=== PATIENT | female | born 1985 | race Caucasian/White ===

== ENCOUNTER 2024-10-22 10:22 | Outpatient (REF) | payer MEDICAID, SELFPAY ==
--- OUTSIDE RECORDS SUMMARY | 2024-10-22 12:16 | XMS_ITS | Encounter Summary ---
Author Organization [employer] Address [address] [facility] [address] [place] [address] Care Team Providers Care Sample Card Maker Name Role Phone Anette Brunson MD Primary Care Provider Encounter Details Date Type Department Care Team (Latest Contact Info) Description 10/22/2024 Travel Social History Tobacco Use Types Packs/Day Years Used Date Smoking Tobacco: Every Day Cigarettes Depression Answer Date Recorded Patient Health Questionnaire-9 Score 1 10/22/2024 Patient Health Questionnaire-9 Score 1 10/22/2024 Last PHQ-9: Questionnaire Data Not on file 0 10/22/2024 Housing Stability Answer Date Recorded What is your housing situation today? I have ciara love 10/08/[address] you li ve. Do you have problems with any of the following? None of the above 10/08/2024 Food Insecurity Answer Date Recorded Within the past 12 months, y ou worried that your food would run out before you got money to buy more: Sometimes True 2024 Within the past 12 months,th e food you bought just didn't last and you didn't have enough money to get more: Sometimes True 10/08/2024 Transportation Answer Date Recorded In the past 12 months, has l ack of transportation kept you from medical appts, meetings, work or from getting things needed for daily living? Yes, it has kept me from medical appointments or getting medications. 10/08/2024 Utilities Answer Date Recorded In the past 12 months, has t he electric, gas, oil or water company threatened to shut off services in your home? I am not sure 10/22/2024 Depression Answer Date Recorded Patient Health Questionnaire-2 Score 0 10/22/2024 Internet Access Answer Date Recorded Internet Access Q1 Yes 10/08/2024 Internet Access Q2 Not on file 10/08/2024 Comments Unknown Sex and Gender Information Value Date Recorded Sex Assigned at Female 11/22/2022 2:36 PM EDT Legal Sex Male 10:19 AM EDT Gender Identity Transgender Male 11/22/2022 2:36 PM EDT Sexual Orientation Choose not to disclose 2021 10:19 AM EDT documented as of this encounter Plan of Treatment Not on file documented as of this encounter Visit Diagnoses Not on filedocumented in this encounter Additional Health Concerns Assessment Noted Time PHQ-9 Depression Total Score: 1 10/22/19 25 10:16 AM EST documented as of this encounter Care Teams Sample Card Maker Relationship Specialty Start Date End Date Anette Brunson MD [address] [place] [address] PCP - General Family Medicine 08/07/12 documented as of this encounter
--- OUTSIDE RECORDS SUMMARY | 2024-10-22 12:16 | XMS_ITS | Encounter Summary ---
Author Organization [employer] Address [address] [place] [address] [address] [address] Care Team Providers Care Arborist Representative Name Role Phone Anette Brunson MD Primary Care Provider [phone] Encounter Details Date Type Department Care Team ([facility] st Contact Info) Description 01/14/2023 [facility] Information Management [address] [place], [place] [id number] Anette Brunson MD [address] [place], [place] [phone] Social History Tobacco Use Types Packs/Day Years Used Date Smoking Tobacco: Every Day Cigarettes Comments Unknown Sex and Gender Information Value [...] Diagnoses Not on filedocumented in this encounter Care Teams Arborist Representative Relationship Specialty Start Date End Date Anette Brunson MD [address] [place] [address] PCP - General Family Medicine 08/07/12 documented as of this encounter
--- OUTSIDE RECORDS SUMMARY | 2024-10-22 12:16 | XMS_ITS | Encounter Summary ---
Author Organization [employer] Address [address] [place] [address] [address] [place] [address] Care Team Providers Care Hand Binder Stripper Name Role Phone Anette Brunson MD Primary Care Provider [phone] Encounter Details Date Type Department Care Team (Late st Contact Info) Description 02/26/2024 Orders Only [facility] CHC MED & PEDS [address] [place], [place] [phone] MonteroOctavio Borges MD [address] [place] [address] Social History Tobacco Use Types Packs/Day Years [...] on filedocumented in this encounter Care Teams Hand Binder Stripper Relationship Specialty Start Date End Date Anette Brunson MD [address] [place] [address] PCP - General Family Medicine 08/07/12 documented as of this encounter
--- OUTSIDE RECORDS SUMMARY | 2024-10-22 12:16 | XMS_ITS | Clinical Summary ---
Author Organization [employer] Address [address] [place] [address] [address] [address] Care Team Providers Care Winding Department Supervisor Name Role Phone Anette Brunson MD Primary Care Provider [phone] Medications naproxen (Naprosyn) 500 MG tablet take 1 tablet by oral route 2 times every day as needed 04/04/2022 Active naproxen (Naprosyn) 500 MG tabletIndication s:Pain TAKE 1 TABLET BY MOUTH two (2) times a day NEEDED 60 tablet 4 06/19/2023 Active testosterone cypionate (Depo-Testostero ne) 200 MG/ML injection Inject 1 mL (200 mg) into the muscle every 14 (fourteen) days. 2 mL 3 09/09/2024 Active levothyroxine (Synthroid, Levoxyl) 200 MCG tabletIndication s:Hypothyroidism , unspecified Take 1 tablet (200 mcg) by mouth Once per day. 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 10/30/2022 Encounters Date Type Department Care Team Description 10/22/2024 10:15 AM EST Office Visit [facility] CHC MED & PEDS [address] [place] [address] Anette Brunson MD Acquired hypothyroidism (Primary Dx); Encounter for screening mammogram for breast cancer; Encounter for immunization; Screen for STD (sexually transmitted disease); Chronic bilateral low back pain without sciatica; 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; Encounter for annual wellness visit 10/22/2024 Travel 10/09/2024 Patient Outreach [facility] MEDICINE [address] [place] [address] Anette Brunson MD SDOH Concerns (C3CM/CHW MATTIE [place] transportation_LVM) 10/08/2024 Patient Outreach [facility] [address] [place] [address] Anette Brunson MD SDOH Concerns (C3CM/CHW MATTIE [place] SDOH) 10/08/2024 Patient Outreach [facility] [address] [place] [address] Anette Brunson MD Pre-visit Planning (SDOH screening positive and Tobacco screening positive) 09/09/2024 Refill [facility] CHC MED & PEDS [address] [place], [place] [phone] Anette Brunson MD Hypothyroidism, unspecified from Last 3 Months Immunizations Name Administration Dates Next Due Tdap 10/22/2024 Social History Tobacco Use Types Packs/Day Years Used Date Smoking Tobacco: Every Day Cigarettes Tobacco Cessation:Ready to Q uit: Not Asked; Counseling Given: Not Answered Depression Answer Date Recorded Patient Health Questionnaire-9 Score 1 10/22/2024 Patient Health Questionnaire-9 Score 1 10/22/2024 Last PHQ-9: Questionnaire Data Not on file 0 10/22/2024 Housing Stability Answer Date Recorded What is your housing situation today? I have ciarakory love 10/08/[address] you [...] not to disclose 2021 10:19 AM EDT Last Filed Vital Signs Vital Sign Reading Time Taken Comments Blood Pressure 140/70 10/22/2024 10:03 AM EST Pulse 82 10/22/2024 10:03 AM EST Temperature 36.6 ??C (97.8 ??F) 10/22/2024 10:[address] Respiratory Rate 20 10/22/2024 10:03 AM EST Oxygen Saturation 98% 10/22/2024 10:03 AM EST Inhaled Oxygen Concentration - - Weight 107 kg (235 lb 12.8 oz) 10/22/2024 10:03 AM EST Height 170.2 cm (5' 7 ) 10/22/2024 10:03 AM EST Body Mass Index 36.93 10/22/2024 10:03 AM EST Plan of Treatment Health Maintenance Due Date Last Done Comments HIV Screening 1983 Family Planning (PISQ) 1998 Hepatitis C Screening 2001 Hepatitis B Vaccines (1 of 3 - 19+ 3-dose series) 2002 Pneumococcal Vaccine: Pediatrics (0 to 5 Years) and At-Risk Patients (6 to 49) Years) (1 of 2 - PCV) 2002 Pap Smear 2004 HPV/Cotest 2013 Mammogram 2023 Influenza Vaccine (#1) 2025 10/05/2021 Postp oned from 04/26/2024 (Patient Refused) Tobacco Screening 10/08/2025 10/08/2024 Alcohol/Substance Use Screening 10/22/2025 10/22/2024 COVID-19 Vaccine (4 - 2023-2 5 season) 2025 08/02/2022, 03/14/2022, 02/07/2022 Postponed from 04/26/2024 (Patient Refused) Cervical Cancer Screening 10/22/2025 Po stponed from 2013 (Patient Refused) Depression Screening 10/22/2025 10/22/2024, 10/22/2024 SDOH Screening 10/22/2025 10/22/2024 Lipid Panel 10/31/2027 10/30/2022, 11/02/2021 Zoster Vaccines (1 of 2) 2033 DTaP/Tdap/Td Vaccines (3 - T d or Tdap) 10/22/2034 10/22/2024, 03/12/2014 RSV Patients and Patients Aged 60 years or older (1 - 1-dose 75+ series) 2058 HIB Vaccines Aged Out No longer eligi ble based on patient's age to complete this topic HPV Vaccines Aged Out No longer eligi ble based on patient's age to complete this topic Hepatitis A Vaccines Aged Out No long er eligible based on patient's age to complete this topic IPV Vaccines Aged Out No longer eligi ble based on patient's age to complete this topic Meningococcal Vaccine Aged Out No gabi chaparro eligible based on patient's age to complete this topic RSV under 20 months Aged Out No longe r eligible based on patient's age to complete this topic Rotavirus Vaccines Aged Out No longer eligible based on patient's age to complete this topic Procedures Procedure Name Priority Date/Time Associated Diagnosis Comments LIPID PANEL, STANDARD Routine 10/30/2022 11:05 AM EST Acquired hypothyroidism from Last 3 Months or Most Recently Relevant to Health Maintenance Results * (ABNORMAL) Lipid Panel, Standard (10/30/2022 11:05 AM EST) Cholesterol, Total 247(H) <200 mg/dL [employer] [place] [employer] HDL Cholesterol 70 > OR = 40 mg/dL [facility] [place] [facility] Triglycerides 146 <150 mg/dL [employer] [place] [facility] LDL Cholesterol 149(H) mg/dL (calc) [facility] [employer] [facility] [place] [facility] Comment: Reference range: <100 Desirable range <100 mg/dL for primary prevention; ?? <70 mg/dL for patients with CHD or diabetic patients with > or = 2 CHD risk factors. LDL-C is now calculated using the Mariel calculation, which is a validated novel method providing better accuracy than the Friedewald equation in the estimation of LDL-C. Nando SS et al. APOLLO. 2013;310(19): 1641-8794 (http://education.[employer]/faq/AHH792) Chol/HDLC Ratio 3.5 <5.0 (calc) [employer] Non-HDL Cholesterol 177(H) <130 mg/dL (calc) [employer] Comment: For patients with diabetes plus 1 major ASCVD risk factor, treating to a non-HDL-C goal of <100 mg/dL (LDL-C of <70 mg/dL) is considered a therapeutic option. Blood Venous blood specimen / Unknown 10/30/2022 11:05 AM EST 10/30/2022 11:06 AM EST Narrative [facility] - 11/04/2022 4:33 PM EDT FASTING:NO FASTING: NO us Anette Brunson MD LAB BLOOD ORDERABLES Final Resul t [facility] [address], [place] [address] [employer] [place] [employer] [address] [facility], ([address]) [place] [address] from Last 3 Months or Most Recently Relevant to Health Maintenance Insurance [facility] C3 Care Teams Winding Department Supervisor Relationship Specialty Start Date End Date Anette Brunson MD [address] [place] [address] PCP - General Family Medicine 08/07/12
--- OUTSIDE RECORDS SUMMARY | 2024-10-22 12:16 | XMS_ITS | Encounter Summary ---
Author Organization [employer] Address [address] [place] [address] [address] [address] Care Team Providers Care Lab Asst Name Role Phone Anette Brunson MD Primary Care Provider [phone] Reason for Referral * Consultation (Routine) - Closed Specialty Diagnoses / Procedures Referred By Bhupinder broussard Referred To Contact Physical Therapy Diagnoses Chronic bilateral low back pain without sciatica Anette Brunson MD [address] [place] [address] Phone: tel: fax: Physical Therapy, AT [address] [place], [place] Phone: tel: fax: Referral ID Status Reason Start Date Expiration Date V isits Requested Visits Authorized [id number] Closed Specialty Services Required 10/22/2024 10/22/2025 1 1 * Consultation (Routine) - Pending Review Specialty Diagnoses / Procedures Referred By Bhupinder broussard Referred To Contact Orthopaedic Surgery Diagnoses Chronic bilateral low back pain without sciatica Anette Brunson MD [address] [place] [address] Phone: tel: fax: Referral ID Status Reason Start Date Expiration Date Visits Requested Visits Authorized [id number] Pending Review Specialty Services Required 10/22/2024 10/22/2025 1 1 Reason for Visit * Reason Comments Annual Exam Encounter Details Date Type Department Care Team (Latest Contact Info) Description 10/22/2024 10:15 AM EST Office Visit [facility] MED & PEDS [address] [place] [address] Anette Brunson MD [address] [place] [address] Acquired hypothyroidism (Primary Dx); Encounter for screening mammogram for breast cancer; Encounter for immunization; Screen for STD (sexually transmitted disease); Chronic bilateral low back pain without sciatica; 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 adult who presents for Annual Exam. Back Pain This is a chronic problem. The current episode started more than 1 year ago. The problem occurs constantly. The problem has been gradually worsening since onset. The pain is present in the lumbar spine. The quality of the pain is described as aching. The pain does not radiate. The pain is at a severity of 7/10. The pain is moderate. The pain is The same all the time. Stiffness is present All day. Pertinent negatives include no abdominal pain, bladder incontinence, bowel incontinence, chest pain, headaches, numbness, paresis, paresthesias, perianal numbness, tingling, weakness or weight loss. Risk factors include obesity and lack of exercise. He has tried analgesics for the symptoms. The treatment provided mild relief. Review of Systems Constitutional: Negative. Negative for weight loss. Respiratory: Negative. Negative for shortness of breath. Cardiovascular: Negative for chest pain and palpitations. Gastrointestinal: Negative. Negative for abdominal pain and bowel incontinence. Genitourinary: Negative. Negative for bladder incontinence. Musculoskeletal: Positive for back pain. Negative for neck pain. Neurological: Negative for tingling, weakness, numbness, headaches and paresthesias. Objective Physical Exam Constitutional: Appearance: Normal appearance. HENT: Head: Normocephalic and atraumatic. Right Ear: Tympanic membrane normal. Left Ear: Tympanic membrane normal. Mouth/Throat: Mouth: Mucous membranes are moist. Eyes: Pupils: Pupils are equal, round, and reactive to light. Cardiovascular: Rate and Rhythm: Normal rate and regular rhythm. Pulmonary: Effort: Pulmonary effort is normal. Breath sounds: Normal breath sounds. Abdominal: General: Abdomen is flat. Palpations: Abdomen is soft. Genitourinary: Comments: Pt refused Musculoskeletal: General: Normal range of motion. Cervical back: Normal range of motion. Lumbar back: No spasms or tenderness. Skin: General: Skin is warm. Neurological: General: No focal deficit present. Mental Status: He is alert. Psychiatric: Mood and Affect: Mood normal. Behavior: Behavior normal. Assessment/Plan Diagnoses and all orders for this visit: Acquired hypothyroidism Comments: Labs ordered Cont Levothyroxine Orders: - Basic Metabolic Panel; Future - Lipid Panel, Standard; Future - Hepatic Function Panel; Future - TSH with Reflex to Free T4; Future Encounter for screening mammogram for breast cancer Encounter for immunization - TDAP VACCINE 7 yrs + Screen for STD (sexually transmitted disease) - Hepatitis C Antibody with Reflex to HCV, RNA, Quantitative, Real-Time PCR; Future - HIV-1/2 Antigen and Antibodies, Fourth Generation, with Reflexes; Future Chronic bilateral low back pain without sciatica Comments: Referred to Ortho Orders: - Referral to Orthopaedic Surgery; Future - Referral to Physical Therapy; Future 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 Maintain a regular cardiovascular exercise program. Advised to maintain a low-fat, low-cholesterol diet. Counseled regarding importance of weight loss. Counseled re: potential co-morbidities including cardiovascular disease. documented in this encounter Plan of Treatment Scheduled Orders Name Type Priority Associated Diagnoses Orde r Schedule Basic Metabolic Panel Lab Routine Acquired hypothyroidism Expected: 10/22/2024 (Approximate), Expires: 10/22/2025 Lipid Panel, Standard Lab Routine Acquired hypothyroidism Expected: 10/22/2024 (Approximate), Expires: 10/22/2025 Hepatic Function Panel Lab Routine Acquired hypothyroidism Expected: 10/22/2024 (Approximate), Expires: 10/22/2025 Hepatitis C Antibody with Reflex to HCV, RNA, Quantitative, Real-Time PCR Lab Routine Screen for STD (sexually transmitted disease) Expected: 10/22/2024, Expires: 10/22/2025 HIV-1/2 Antigen and Antibodies, Fourth Generation, with Reflexes Lab Routine Screen for STD (sexually transmitted disease) Expected: 10/22/2024 (Approximate), Expires: 10/22/2025 TSH with Reflex to Free T4 Lab Routine Acquired hypothyroidism Expected: 10/22/2024 (Approximate), Expires: 10/22/2025 Testosterone, Total, males (Adult), IA Lab Routine 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 Expected: 10/22/2024, Expires: 10/22/2025 Scheduled Referrals Name Type Priority Associated Diagnoses Order Schedule Referral to Orthopaedic Surgery Outpatient Referral Routine Chronic bilateral low back pain without sciatica Expected: 10/22/2024 (Approximate), Expires: 10/22/2025 Referral to Physical Therapy Outpatient Referral Routine Chronic bilateral low back pain without sciatica Expected: 10/22/2024 (Approximate), Expires: 10/22/2025 documented as of this encounter Visit Diagnoses Diagnosis Acquired hypothyroidism- Primary Unspecified hypothyroidism Encounter for screening mammogram for breast cancer Encounter for immunization Screen for STD (sexually transmitted disease) Screening examination for venereal disease Chronic bilateral low back pain without sciatica 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
--- OUTSIDE RECORDS SUMMARY | 2024-10-22 12:16 | XMS_ITS | Encounter Summary ---
Author Organization [email or web address] Address [address] [facility] [address] [place] [address] Care Team Providers Care Tobacco Cutter Name Role Phone Anette Brunson MD Primary Care Provider [phone] Reason for Visit * Reason Comments SDOH Concerns C3CM/MATTIE Pereyra transportation_LVM Encounter Details Date Type Department Care Team ([facility] st Contact Info) Description 10/09/2024 Patient Outreach [facility] MEDICINE [address] [place] [address] Anette Brunson MD [address] [place] [address] SDOH Concerns (MTATIE Cao transportation_LVM) Social History Tobacco Use Types Packs/Day Years Used Date Smoking Tobacco: Every Day Cigarettes Housing Stability Answer Date Recorded What is [...] the past 12 months, has t he [employer], [employer], oil or water company threatened to shut off services in your home? No 10/08/2024 Internet Access Answer Date Recorded Internet Access Q1 Yes 10/08/2024 Internet Access Q2 Not on file 10/08/2024 Comments Unknown Sex and Gender Information Value Date Recorded Sex Assigned at Female 11/22/2022 2:36 PM EDT Legal Sex Male 10:19 AM EDT Gender Identity Transgender Male 11/22/2022 2:36 PM EDT Sexual Orientation Choose not to disclose 2021 10:19 AM EDT documented as of this encounter Progress Notes * Rajiv Martinez - 10/09/2024 1:46 PM EST CHW Rajiv Martinez, scheduled transportation via online for upcoming appt at [facility] on 10/22/24 at 10:00 AM. CHW called patient & no answer. CHW LVM informing patient of transportation details. documented in this encounter Plan of Treatment Not on file documented as of this encounter Visit Diagnoses Not on filedocumented in this encounter Care Teams Tobacco Cutter Relationship Specialty Start Date End Date Anette Brunson MD [address] [place] [address] PCP - General Family Medicine 08/07/12 documented as of this encounter
--- OUTSIDE RECORDS SUMMARY | 2024-10-22 12:16 | XMS_ITS | Encounter Summary ---
Author Organization [employer] Address [address] [place] [address] [address] [address] Care Team Providers Care Trim Mounter Name Role Phone Anette Brunson MD Primary Care Provider [phone] Reason for Visit * Reason Comments Med Refill Encounter Details Date Type Department Care Team ([facility] st Contact Info) Description 11/18/2023 Refill [facility] MEDICINE [address] [place] [address] Anette Brunson MD [address] [place] [address] Pain Social History Tobacco Use Types Packs/Day Years [...] as of this encounter Visit Diagnoses Diagnosis Pain Generalized pain documented in this encounter Care Teams Trim Mounter Relationship Specialty Start Date End Date Anette Brunson MD [address] [place] [address] PCP - General Family Medicine 08/07/12 documented as of this encounter
--- OUTSIDE RECORDS SUMMARY | 2024-10-22 12:17 | XMS_ITS | Encounter Summary ---
Author Organization [employer] Address [address] [facility] 7[address] [place] [address] Care Team Providers Care Logistics Specialist Name Role Phone Anette Brunson MD Primary Care Provider [phone] Reason for Visit * Reason Comments SDOH Concerns [id number] Pereyra SDOH Encounter Details Date Type Department Care Team ([facility] st Contact Info) Description 10/08/2024 Patient Outreach [facility] MEDICINE [address] [place] [address] Anette Brunson MD [address] [place] [address] SDOH Concerns (SALLY/MATTIE Godinez SDOH) Social History Tobacco Use Types Packs/Day Years [...] encounter Progress Notes * Rajiv Martinez - 10/08/2024 11:07 AM EST CHW Rajiv Martinez, placed outbound call to patient introducing herself from [facility] CM Department, in regards to SDOH needs for food insecurity & transportation. Patient's name andDOB was confirmed. CHW submitted PT1 request for [facility], [facility] today. CHW will contact patient on Saturdayto request transportation for upcoming appt at [facility]. Patient has food insecurities sometimes. CHW mailed a food pantry list to patient. No other SDOH needs at this time. CHW reinforced direct contact information for any additional questions or concerns and extended clinic hours on Mondays and Wednesdays, and Walk-In Urgent Care Located in [facility] of [facility]. Patient provided with after-hours line for [facility], , which offer night time triage service and option to transfer to systems integration analyst provider if needed. Patient verbalizes understanding, and able to repeat back to physician underwriter. A follow up call will be placed within 10 days, patient agrees with plan. documented in this encounter Plan of Treatment Not on file documented as of this encounter Visit Diagnoses Not on filedocumented in this encounter Care Teams Logistics Specialist Relationship Specialty Start Date End Date Anette Brunson MD [address] [place] [id number] PCP - General Family Medicine 08/07/12 documented as of this encounter
--- OUTSIDE RECORDS SUMMARY | 2024-10-22 12:17 | XMS_ITS | Encounter Summary ---
Author Organization [employer] Address [address] [place] [address] [address] [place] [address] Care Team Providers Care Superintendent Operating Name Role Phone Anette Brunson MD Primary Care Provider [phone] Encounter Details Date Type Department Care Team (Late st Contact Info) Description 10/31/2022 Orders Only [facility] CHC MED & PEDS [address] [place], [place] [id number] Anette Brunson MD [address] [place], [place] [phone] Social History Tobacco Use Types Packs/Day Years Used Date Smoking Tobacco: Every Day Cigarettes Comments Unknown Sex and Gender Information Value Date Recorded Sex Assigned at Female 11/22/2022 2:36 PM EDT Legal Sex Male 10:19 AM EDT Gender Identity Transgender Male 11/22/2022 2:36 PM EDT Sexual Orientation Choose not to disclose 2021 10:19 AM EDT COVID-19 Exposure Response Date Recorded In the last 10 days, have yo u been in contact with someone who was confirmed or suspected to have Coronavirus/COVID-19? No / Unsure 10/30/2022 10:30 AM EST documented as of this encounter Plan of Treatment Not on file documented as of this encounter Visit Diagnoses Not on filedocumented in this encounter Care Teams Superintendent Operating Relationship Specialty Start Date End Date Anette Brunson MD [address] [place] [address] PCP - General Family Medicine 08/07/12 documented as of this encounter
--- OUTSIDE RECORDS SUMMARY | 2024-10-22 12:17 | XMS_ITS | Encounter Summary ---
Author Organization [employer] Address [address] [place] [address] [address] [address] Care Team Providers Care Marina Sales And Service Supervisor Name Role Phone Anette Brunson MD Primary Care Provider [phone] Reason for Visit * Reason Onset Date Comments triage 01/07/2023 Encounter Details Date Type Department Care Team (Late st Contact Info) Description 01/07/2023 Telephone [facility] CHC MED & PEDS [address] [place], [place] [phone] Anette Brunson MD [address] [place] [address] triage Social History Tobacco Use Types Packs/Day Years Used Date Smoking Tobacco: Every Day Cigarettes Comments Unknown Sex and Gender Information Value Date Recorded Sex Assigned at Female 11/22/2022 2:36 PM EDT Legal Sex Male 10:19 AM EDT Gender Identity Transgender Male 11/22/2022 2:36 PM EDT Sexual Orientation Choose not to disclose 2021 10:19 AM EDT documented as of this encounter Miscellaneous Notes * Telephone Encounter - Anette Brunson MD - 01/08/2023 10:14 PM EDT PA needs to be done * Telephone Encounter - Samira Sims LPN - 01/07/2023 3:25 PM EDT Please review and advise regarding message below. * Telephone Encounter - Leda Seals - 01/07/2023 2:17 PM EDT Tc from pt calling to inform was told by pharmacy that medication testosterone cypionate (Depo-Testosterone) 200 MG/ML injection needs PA . documented in this encounter Plan of Treatment Not on file documented as of this encounter Visit Diagnoses Not on filedocumented in this encounter Care Teams Marina Sales And Service Supervisor Relationship Specialty Start Date End Date Anette Brunson MD [address] [place] [address] PCP - General Family Medicine 08/07/12 documented as of this encounter
--- OUTSIDE RECORDS SUMMARY | 2024-10-22 12:17 | XMS_ITS | Clinical Summary ---
Author Organization [facility] Address [address] [place] [address], [place] [address] Care Team Providers Care Contact Center Assistant Name Role Phone Anette Brunson MD Primary Care Provider [phone] Social History Tobacco Use Types Packs/Day Years Used Date Smoking Tobacco: Never Assessed Sex and Gender Information Value Date Recorded Sex Assigned at Not on file Legal Sex Male 2:46 PM EDT Gender Identity Not on file Sexual Orientation Not on file Plan of Treatment Health Maintenance Due Date Last Done Comments Hepatitis B Vaccine (1 of 3 - 19+ 3-dose series) 2002 Influenza Vaccine (#1) 2024 Pneumococcal Vaccine: Pediat rics (0 to 5 Years) and At-Risk Patients (6 to 64 Years) Aged Out No longer eligi ble based on patient's age to complete this topic [place] Care Teams Contact Center Assistant Relationship Specialty Start Date End Date Anette Brunson MD [address] [place] [address] PCP - General Family Medicine 11/20/21
--- OUTSIDE RECORDS SUMMARY | 2024-10-22 12:17 | XMS_ITS | Encounter Summary ---
Author Organization [employer] Address [address] [facility] 7[address] [place] [address] Care Team Providers Care Tray Service Worker Name Role Phone Anette Brunson MD Primary Care Provider [phone] Reason for Visit * Reason Comments Pre-visit Planning SDOH screening posit jaelyn and Tobacco screening positive Encounter Details Date Type Department Care Team ([facility] st Contact Info) Description 10/08/2024 Patient Outreach [facility] MEDICINE [address] [place] [address] Anette Brunson MD [address] [place] [address] Pre-visit Planning (SDOH screening positive and Tobacco screening positive) Social History Tobacco Use Types Packs/Day Years [...] as of this encounter Progress Notes * Ludmila Armando - 10/08/2024 9:48 AM EST CC Ludmila Rose placed successful outbound call to patient for pre-visit planning. Patient name and confirmed. Patient confirms appt date and time, and has transportation arrangements. Biggest concern for appointment at this time is back pain and would like a order for MRI. Patient educated on extended clinic hours on Mondays and Wednesdays, and Walk-In Urgent Care Located in [facility]. Patient provided with after-hours line for [facility], , which offer night time triage service and option to transfer to arson investigator provider if needed. Patient advised to bring to appointment a photo id and insurance card. Appropriate screenings completed in anticipation of appointment. Tobacco screening positive. Will counseling. SDOH positive. Patient looking for assistance with food insecurities: Sometimes and Transportation. Referral will be placed. documented in this encounter Plan of Treatment Not on file documented as of this encounter Visit Diagnoses Not on filedocumented in this encounter Care Teams Tray Service Worker Relationship Specialty Start Date End Date Anette Brunson MD [address] [place] [address] PCP - General Family Medicine 08/07/12 documented as of this encounter
[2024-10-22 15:28] LABS: Alanine Aminotransferase 26 U/L (0-31); Albumin Level 4.2 g/dL (3.5-5.0); Alkaline Phosphatase 75 U/L (39-117); Anion Gap 10 (12-20); Aspartate Amino Transferase 27 U/L (5-31); Bilirubin Direct 0.1 mg/dL (0.0-0.5); Bilirubin Total 0.3 mg/dL (0.0-1.0); Blood Urea Nitrogen 18 mg/dL (9-16); Calcium 9.3 mg/dL (8.4-10.2); Carbon Dioxide 32 mmol/L (22-29); Chloride 107 mmol/L (96-108); Cholesterol 175 mg/dL (<200); Estimated Glomerular Filt Rate > 60; Glucose Random 84 mg/dL (60-115); HDL Cholesterol 49 mg/dL (>40); LDL Cholesterol Calculated 109 mg/dL (<100); Potassium 4.9 mmol/L (3.3-5.1); Sodium 144 mmol/L (135-145); Total Protein 7.4 g/dL (6.5-8.0); Triglycerides 89 mg/dL (<150)
[2024-10-22 15:30] LABS: TSH reflex Free T4 10.82 uIU/mL (0.32-4.0)
[2024-10-22 16:03] LABS: Free T4 (Free Thyroxine) 1.11 ng/dL (0.71-1.85)
[2024-10-23 07:57] LABS: HIV AB/AG Nonreactive (Nonreactive); HIV Num 1 0.08 S/CO (0.00-0.99); ~HepC Num1 0.23 S/CO (0.00-0.79); ~Hepatitis C Antibody Nonreactive (Nonreactive)
[2024-10-31 09:09] LABS: Testosterone, Total 1105 ng/dL (2-45)
== END 2024-10-22 10:23 | disposition home or self-care (01) ==
LOC: HO.CHCLDS 10:22
PROVIDERS: Visit Provider Student in an Organized Health Care Education/Training Program
DX: E03.9 Hypothyroidism, unspecified (principal); Z11.3 Encounter for screening for infections with a predominantly sexual mode of transmission; F64.0 Transsexualism; Z79.899 Other long term (current) drug therapy
CPT/HCPCS: 36415; 80048; 80061; 80076; 84403; 84439; 84443; 86803; 87389